=== PATIENT | female | born 1965 | race Caucasian/White ===

== ENCOUNTER 2018-06-04 07:02 | Day surgery (SDC) | payer BC ==
[~2018-06-04 07:02] MED LIST: Ketamine 500 mg/10 ML MDV ONE; Lactated Ringers 1,000 ML IV SCH; Lidocaine 1%/Sod Bicarbonate in NS 8.4% 1 ML Syringe IDERM PRN; Midazolam 1 MG/ML 2 ML SDV ONE; Propofol 200 MG/20 ML SDV ONE; Sodium Chloride 0.9% 10 ML Syringe FLUSH PRN; fentaNYL 100 MCG/2 ML SDV ONE
[2018-06-04] MEDS ORDERED: Lidocaine 1% 4 ML ONE (07:04)
[2018-06-04] MEDS ORDERED: Dexamethasone 4 MG/ML 5 ML MDV ONE (07:04)
[2018-06-04] MEDS ORDERED: Ondansetron 4 MG/2 ML SDV ONE (07:04)
--- NOTE | 2018-06-04 07:44 | PCM.PREANE ---
Preanesthetic Assessment - Procedure Proposed Procedure: Uterine D&C and hysteroscopy - Anesthesia/Transfusion/Family Hx Anesthesia History: Prior Anesthesia Without Reaction (PONV) Family History of Anesthesia Reaction: No Transfusion History: No Prior Transfusion(s) - Review of Systems General: No Symptoms Pulmonary: No Symptoms Cardiovascular: No Symptoms Gastrointestinal: No Symptoms Neurological: No Symptoms Other: Reports: Depression, Anxiety - Physical Assessment NPO Status Date: 06/03/18 NPO Status Time: 22:00 Pulse: 69 O2 Sat by Pulse Oximetry: 95 Respiratory Rate: 16 Blood Pressure: 113/68 Temperature: 36.7 C Height: 1.63 m Weight: 65.317 kg ASA Class: 2 Mental Status: Alert & Oriented x3 Airway Class: Mallampati = 1 Dentition: Reports: Normal Dentition Thyro-Mental Finger Breadths: 3 Mouth Opening Finger Breadths: 3 ROM/Head Extension: Full Lungs: Clear to Auscultation, Normal Respiratory Effort Cardiovascular: Regular Rate, Regular Rhythm - Lab Values: Laboratory Last Values WBC 5.57 K/mm3 (3.98-10.04) 05/13/18 09:39 RBC 4.46 M/mm3 (3.98-5.22) 05/13/18 09:39 Hgb 14.5 gm/L (11.2-15.7) 05/13/18 09:39 Hct 44.1 % (34.1-44.9) 05/13/18 09:39 MCV 98.9 fl (79.4-94.8) H 05/13/18 09:39 MCH 32.5 pg (25.6-32.2) H 05/13/18 09:39 MCHC 32.9 g/dl (32.2-35.5) 05/13/18 09:39 RDW Std Deviation 45.2 fL (36.4-46.3) 05/13/18 09:39 Plt Count 223 K/mm3 (182-369) 05/13/18 09:39 MPV 9.5 fl (9.4-12.3) 05/13/18 09:39 Neut % (Auto) 46.1 % (34.0-71.1) 05/13/18 09:39 Lymph % (Auto) 44.2 % (19.3-51.7) 05/13/18 09:39 [place] % (Auto) 8.4 % (4.7-12.5) 05/13/18 09:39 Eos % (Auto) 0.9 (0.7-5.8) 05/13/18 09:39 Baso % (Auto) 0.2 % (0.1-1.2) 05/13/18 09:39 Neut # (Auto) 2.57 K/mm3 (1.56-6.13) 05/13/18 09:39 Lymph # (Auto) 2.46 K/mm3 (1.18-3.74) 05/13/18 09:39 [place] # (Auto) 0.47 K/mm3 (0.24-0.36) H 05/13/18 09:39 Eos # (Auto) 0.05 K/mm3 (0.04-0.36) 05/13/18 09:39 Baso # (Auto) 0.01 K/mm3 (0.01-0.08) 05/13/18 09:39 Urine Color Yellow (Yellow) 05/13/18 09:39 Urine Appearance Clear (Clear) 05/13/18 09:39 Urine pH 7.5 (5.0-8.0) 05/13/18 09:39 Ur Specific Joseph 1.015 (1.005-1.030) 05/13/18 09:39 Urine Protein Negative (Negative) 05/13/18 09:39 Urine Glucose (UA) Negative (Negative) 05/13/18 09:39 Urine Ketones Negative (Negative) 05/13/18 09:39 Urine Occult Blood Negative (Negative) 05/13/18 09:39 Urine Nitrite Negative (Negative) 05/13/18 09:39 Urine Bilirubin Negative (Negative) 05/13/18 09:39 Urine Urobilinogen 0.2 (0.2-1.0) 05/13/18 09:39 Ur Leukocyte Esterase Negative (Negative) 05/13/18 09:39 - Allergies Allergies/Adverse Reactions: Allergies Allergy/AdvReac Type Severity Reaction Status Date / Time epinephrine Allergy hypoglycemi Verified 06/03/18 15:00 a strawberry Allergy Hives Verified 06/03/18 15:00 - Blood Blood Available: No Product(s) Available: None - Anesthesia Plan Pre-Op Medication Ordered: None - Acknowledgements Anesthesia Type Planned: MAC Pt an Appropriate Candidate for the Planned Anesthesia: Yes Alternatives and Risks of Anesthesia Discussed w Pt/Guardian: Yes Pt/Guardian Understands and Agrees with Anesthesia Plan: Yes PreAnesthesia Questionnaire HEENT History: Reports: Impaired Vision, Other (See Below) Other HEENT History: wears glasses Cardiovascular History: Reports: None Respiratory History: Reports: None Gastrointestinal History: Reports: None 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: , 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 , Other (See Below) Other OB/BYN History: post menopausal bleeding, stress urinary incontinence, bacterial vaginitis, breast nodule, , cervical dysplasia Musculoskeletal History: Reports: None Neurological History: Reports: None Psychiatric History: Reports: Anxiety, Depression Endocrine/Metabolic History: Reports: None Hematologic History: Reports: None Immunologic History: Reports: None Oncologic (Cancer) History: Reports: Breast Other Oncologic History: hx of bilateral breast cancer with bilateral mastectomies with a lymphnode taken from the left side Dermatologic History: Reports: None - Past Surgical History Head Surgeries/Procedures: Reports: None Cardiovascular Surgical History: Reports: None Respiratory Surgical History: Reports: None GI Surgical History: Reports: None Female Surgical History: Reports: Breast Biopsy, Cervical Conization, Tubal Ligation Male Surgical History: Reports: None Endocrine Surgical History: Reports: None Neurological Surgical History: Reports: None Musculoskeletal Surgical History: Reports: None Oncologic Surgical History: Reports: Biopsy of Breast, Mastectomy Dermatological Surgical History: Reports: None - SUBSTANCE USE Smoking Status *Q: Current Every Day Smoker Recreational Drug Use History: No - HOME MEDS Home Medications: Home Meds ALPRAZolam [Alprazolam] 0.5 mg PO BID PRN 06/03/18 [History] Calcium Carbonate [Calcium] 600 mg PO DAILY 06/03/18 [History] Escitalopram Oxalate 20 mg PO DAILY 06/03/18 [History] Gluc 2KCl/Chondr/Myranda Hy/Hy Ac [Glucosamine & Chondroitin Cap] 1 cap PO DAILY [History] Letrozole 2.5 mg PO DAILY 06/03/18 [History] Multivitamin [Daily Multiple Vitamin] 1 tab PO DAILY 06/03/18 [History] - CURRENT (IN HOUSE) MEDS Current Meds: Current Medications Lactated Ringer's (Ringers, Lactated) 1,000 mls @ 125 mls/hr IV ASDIRECTED YAZMIN Lidocaine/Sodium Bicarbonate (Buffered Lidocaine 1% In Ns 8.4%) 0.25 ml IDERM ONETIME PRN PRN Reason: Prior to IV Start Sodium Chloride (Saline Flush) 10 ml FLUSH ASDIRECTED PRN PRN Reason: Keep Vein Open Discontinued Medications Dexamethasone (Dexamethasone) Confirm Administered Dose 20 mg .ROUTE .STK-MED ONE Stop: 06/04/18 07:05 Fentanyl (Sublimaze) Confirm Administered Dose 100 mcg .ROUTE .STK-MED ONE Stop: 06/04/18 07:02 Lidocaine HCl (Xylocaine-Mpf 1%) Confirm Administered Dose 4 mls @ as directed .ROUTE .STK-MED ONE Stop: 06/04/18 07:05 Ketamine HCl (Ketalar) Confirm Administered Dose 500 mg .ROUTE .STK-MED ONE Stop: 06/04/18 07:03 Midazolam HCl (Versed 1 Mg/Ml) Confirm Administered Dose 2 mg .ROUTE .STK-MED ONE Stop: 06/04/18 07:03 Ondansetron HCl (Zofran) Confirm Administered Dose 4 mg .ROUTE .STK-MED ONE Stop: 06/04/18 07:05 Propofol (Diprivan 20 Ml) Confirm Administered Dose 200 mg .ROUTE .STK-MED ONE Stop: 06/04/18 07:02
[2018-06-04] MEDS ORDERED: ceFAZolin 1 GM Vial ONE (08:06)
[2018-06-04] MEDS ORDERED: Ondansetron 4 MG/2 ML SDV IVPUSH PRN (08:23)
[2018-06-04] MEDS ORDERED: Acetaminophen/oxyCODONE 325-5 MG Tab PO PRN (08:23)
--- NOTE | 2018-06-04 08:32 | PCM.OPNOTE ---
- General Post-Op/Procedure Note Date of Surgery/Procedure: 06/04/18 Operative Procedure(s): Hysteroscopy, dilation and curettage Findings: Patient had synechia present within the uterus, small polyp present-benign in appearance. The tubal ostia were seen. No other abnormalities noted. On bimanual exam the uterus is found to approximate 7-8 weeks size, very irregular and firm consistent with fibroid uterus. No adnexal abnormalities were noted. Uterus was freely mobile. It is felt that vaginal hysterectomy could be possible if indicated by future clinical findings and/or history. 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 She received 2 g of Ancef preoperatively for infection prophylaxis and had sequential compression stockings in place for DVT prophylaxis. Patient was given MAC. She is placed in a dorsal lithotomy position and prepped and draped in usual fashion. An exam under anesthesia was performed. Uterus is noted to be approximate 70 weeks size, irregular, consistent with fibroid uterus. Findings as described above. A weighted speculum was placed in the vagina. Cervix is visualized. It was grasped anteriorly with a single-tooth tenaculum. Uterus was then sounded to a depth of 7 cm. It is from the anterior, mid position. The cervix was dilated to allow entrance of a 5 mm 30 rigid hysteroscope. This was placed without problem and normal saline was used as a distending medium. The endometrial cavity was visualized. Findings as described above. Polyp was seen. Decision was made to proceed with polypectomy. Polyp forceps was introduced and polyps were removed. After this is performed a D&C was performed. Minimal amount tissue was obtained. Minimal bleeding was encountered. Hysteroscope was then placed back into the endometrial cavity. Blood was flushed out and the findings were consistent relatively normal-appearing endometrial cavity. At this point the scope was removed. The vagina was cleared of old blood, the cervix was released and the weighted speculum was removed. Patient was returned to supine position and awakened from general anesthesia. She tolerated the procedure well and operating room in good condition.
--- NOTE | 2018-06-04 08:33 | PCM48HPAN ---
Post Anesthesia Note - EVALUATION WITHIN 48HRS OF ANESTHETIC Vital Signs in Normal Range: Yes Patient Participated in Evaluation: Yes Respiratory Function Stable: Yes Airway Patent: Yes Cardiovascular Function Stable: Yes Hydration Status Stable: Yes Pain Control Satisfactory: Yes Nausea and Vomiting Control Satisfactory: Yes Mental Status Recovered: Yes Pulse Rate: 73 SaO2: 93 Resp Rate: 12 Temperature: 37.4 C Blood Pressure: 96/59
== END 2018-06-04 09:35 | disposition home or self-care (01) ==
LOC: JD.SDS 07:02
PROVIDERS: ATTEND Obstetrics & Gynecology
DX: N95.0 Postmenopausal bleeding (principal); N84.1 Polyp of cervix uteri; N85.6 Intrauterine synechiae; F17.210 Nicotine dependence, cigarettes, uncomplicated; F41.8 Other specified anxiety disorders; Z79.899 Other long term (current) drug therapy; Z88.8 Allergy status to other drugs, medicaments and biological substances; Z91.018 Allergy to other foods
CPT/HCPCS: 36415; 58558; 81003; 85025; J0690; J1100; J2250; J2405; J2704; J3010; J7120; 00952; J2001

== ENCOUNTER 2018-08-20 07:13 | Day surgery (SDC) | payer BC ==
--- NOTE | 2018-08-19 11:52 | PCM.PREANE ---
Preanesthetic Assessment - Anesthesia/Transfusion/Family Hx Anesthesia History: Prior Anesthesia Reaction (`) Type of Anesthesia Reaction: Excessive Nausea/Vomiting Family History of Anesthesia Reaction: No Transfusion History: No Prior Transfusion(s) Intubation History: Unknown - Review of Systems General: Fatigue Pulmonary: No Symptoms (smoker: 1 ppd times 40 years), Wheezing (occasionally wheezes), Cough, Sputum Cardiovascular: No Symptoms Gastrointestinal: No Symptoms (GERD) Neurological: No Symptoms Other: Reports: None (bilateral mastectomies with left sided lymph node removed (bilateral breast cancer)), Easy Bruising, Depression, Anxiety - Physical Assessment NPO Status Date: 08/19/18 NPO Status Time: 22:30 Pulse: 73 O2 Sat by Pulse Oximetry: 93 Respiratory Rate: 16 Blood Pressure: 105/61 Temperature: 36.9 C Height: 1.63 m Weight: 66 kg ASA Class: 2 Mental Status: Alert & Oriented x3 Airway Class: Mallampati = 2 Dentition: Reports: Normal Dentition, Missing Tooth/Teeth, Caries Thyro-Mental Finger Breadths: 3 Mouth Opening Finger Breadths: 3 ROM/Head Extension: Full Lungs: Clear to Auscultation, Normal Respiratory Effort Cardiovascular: Regular Rate, Regular Rhythm, No Murmurs - Lab Values: Laboratory Last Values WBC 6.59 K/mm3 (3.98-10.04) 08/18/18 13:08 RBC 4.04 M/mm3 (3.98-5.22) 08/18/18 13:08 Hgb 13.4 gm/L (11.2-15.7) 08/18/18 13:08 Hct 40.6 % (34.1-44.9) 08/18/18 13:08 MCV 100.5 fl (79.4-94.8) H 08/18/18 13:08 MCH 33.2 pg (25.6-32.2) H 08/18/18 13:08 MCHC 33.0 g/dl (32.2-35.5) 08/18/18 13:08 RDW Std Deviation 49.8 fL (36.4-46.3) H 08/18/18 13:08 Plt Count 237 K/mm3 (182-369) 08/18/18 13:08 MPV 9.1 fl (9.4-12.3) L 08/18/18 13:08 Neut % (Auto) 48.6 % (34.0-71.1) 08/18/18 13:08 Lymph % (Auto) 41.6 % (19.3-51.7) 08/18/18 13:08 [place] % (Auto) 8.2 % (4.7-12.5) 08/18/18 13:08 Eos % (Auto) 1.2 (0.7-5.8) 08/18/18 13:08 Baso % (Auto) 0.2 % (0.1-1.2) 08/18/18 13:08 Neut # (Auto) 3.21 K/mm3 (1.56-6.13) 08/18/18 13:08 Lymph # (Auto) 2.74 K/mm3 (1.18-3.74) 08/18/18 13:08 [place] # (Auto) 0.54 K/mm3 (0.24-0.36) H 08/18/18 13:08 Eos # (Auto) 0.08 K/mm3 (0.04-0.36) 08/18/18 13:08 Baso # (Auto) 0.01 K/mm3 (0.01-0.08) 08/18/18 13:08 Creatinine 1.0 mg/dL (0.55-1.02) 08/18/18 13:08 Est Cr Clr Drug Dosing TNP 08/18/18 13:08 Estimated GFR (MDRD) 58 mL/min (>60) 08/18/18 13:08 Urine Color Yellow (Yellow) 08/18/18 13:08 Urine Appearance Clear (Clear) 08/18/18 13:08 Urine pH 7.0 (5.0-8.0) 08/18/18 13:08 Ur Specific [place] 1.020 (1.005-1.030) 08/18/18 13:08 Urine Protein Negative (Negative) 08/18/18 13:08 Urine Glucose (UA) Negative (Negative) 08/18/18 13:08 Urine Ketones Negative (Negative) 08/18/18 13:08 Urine Occult Blood Negative (Negative) 08/18/18 13:08 Urine Nitrite Negative (Negative) 08/18/18 13:08 Urine Bilirubin Negative (Negative) 08/18/18 13:08 Urine Urobilinogen 0.2 (0.2-1.0) 08/18/18 13:08 Ur Leukocyte Esterase Negative (Negative) 08/18/18 13:08 Above labs reviewed and noted and within acceptable ranges to proceed with scheduled procedure. - Imaging/EKG Impressions: EKG:SR rate = 67, probable left atrial enlargement - Allergies Allergies/Adverse Reactions: Allergies Allergy/AdvReac Type Severity Reaction Status Date / Time strawberry Allergy Hives Verified 08/19/18 13:59 epinephrine AdvReac hypoglycemi Verified 08/19/18 13:59 a - Anesthesia Plan Pre-Op Medication Ordered: None - Acknowledgements Anesthesia Type Planned: General Anesthesia Pt an Appropriate Candidate for the Planned Anesthesia: Yes Alternatives and Risks of Anesthesia Discussed w Pt/Guardian: Yes Pt/Guardian Understands and Agrees with Anesthesia Plan: Yes PreAnesthesia Questionnaire HEENT History: Reports: Impaired Vision, Other (See Below) Other HEENT History: wears glasses Cardiovascular History: Reports: None Respiratory History: Reports: None Gastrointestinal History: Reports: None 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: , 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 , Other (See Below) Other OB/BYN History: post menopausal bleeding, stress urinary incontinence, bacterial vaginitis, breast nodule, , cervical dysplasia Musculoskeletal History: Reports: None Neurological History: Reports: None Psychiatric History: Reports: Anxiety, Depression Endocrine/Metabolic History: Reports: None Hematologic History: Reports: None Immunologic History: Reports: None Oncologic (Cancer) History: Reports: Breast Other Oncologic History: hx of bilateral breast cancer with bilateral mastectomies with a lymphnode taken from the left side Dermatologic History: Reports: None - Past Surgical History Head Surgeries/Procedures: Reports: None Cardiovascular Surgical History: Reports: None Respiratory Surgical History: Reports: None GI Surgical History: Reports: None Female Surgical History: Reports: Breast Biopsy, Cervical Conization, Tubal Ligation Male Surgical History: Reports: None Endocrine Surgical History: Reports: None Neurological Surgical History: Reports: None Musculoskeletal Surgical History: Reports: None Oncologic Surgical History: Reports: Biopsy of Breast, Mastectomy Dermatological Surgical History: Reports: None - HOME MEDS Home Medications: Home Meds ALPRAZolam [Alprazolam] 0.5 mg PO BID PRN 06/03/18 [History] Calcium Carbonate [Calcium] 600 mg PO DAILY 06/03/18 [History] Escitalopram Oxalate 20 mg PO DAILY 06/03/18 [History] Gluc 2KCl/Chondr/Myranda Hy/Hy Ac [Glucosamine & Chondroitin Cap] 1 cap PO DAILY [History] Letrozole 2.5 mg PO DAILY 06/03/18 [History] Multivitamin [Daily Multiple Vitamin] 1 tab PO DAILY 06/03/18 [History] Ibuprofen 600 mg PO Q4H PRN #20 tablet 06/04/18 [Rx] - CURRENT (IN HOUSE) MEDS Current Meds: Current Medications Albuterol (Proventil Neb Soln) 2.5 mg NEB ONETIME ONE Stop: 08/20/18 08:01 Lactated Ringer's (Ringers, Lactated) 1,000 mls @ 125 mls/hr IV ASDIRECTED YAZMIN Stop: 08/20/18 23:00 Lidocaine/Sodium Bicarbonate (Buffered Lidocaine 1% In Ns 8.4%) 0.25 ml IDERM ONETIME PRN PRN Reason: Prior to IV Start Stop: 08/20/18 18:00 Scopolamine (Transderm-Scop) 1.5 mg TOP ONETIME ONE Stop: 08/20/18 00:02 Sodium Chloride (Saline Flush) 10 ml FLUSH ASDIRECTED PRN PRN Reason: Keep Vein Open Stop: 08/20/18 18:00
[~2018-08-20 07:13] MED LIST changes: +Dexamethasone 4 MG/ML 5 ML MDV ONE; +HYDROmorphone 0.5 MG/0.5 ML Syringe ONE; -Ketamine 500 mg/10 ML MDV ONE; +Ketorolac 30 MG/ML SDV ONE; +Lactated Ringers 1,000 ML ONE; +Lidocaine 1% 4 ML ONE; +Ondansetron 4 MG/2 ML SDV ONE; +Rocuronium 50 MG/5 ML Vial ONE; +Scopolamine 1.5 MG Transdermal Patch TOP ONE; +ceFAZolin 1 GM Vial ONE
[2018-08-20] MEDS ORDERED: Sodium Chloride 0.9% 50 ML SDV ONE (07:23)
[2018-08-20] MEDS ORDERED: Lidocaine 1% 30 ML SDV ONE (07:23)
[2018-08-20] MEDS ORDERED: Albuterol 0.083% 2.5 MG/3 ML Neb Soln NEB ONE (08:00)
[2018-08-20] MEDS ORDERED: fentaNYL 100 MCG/2 ML SDV IVPUSH PRN (08:17)
[2018-08-20] MEDS ORDERED: diphenhydrAMINE 50 MG/ML SDV IVPUSH PRN (08:17)
[2018-08-20] MEDS ORDERED: Midazolam 1 MG/ML 2 ML SDV IVPUSH PRN (08:17)
[2018-08-20] MEDS ORDERED: Metoclopramide 10 MG/2 ML SDV IV PRN (08:17)
[2018-08-20] MEDS ORDERED: Ondansetron 4 MG/2 ML SDV IVPUSH PRN (08:17)
[2018-08-20] MEDS ORDERED: HYDROmorphone 0.5 MG/0.5 ML Syringe IVPUSH PRN (08:18)
[2018-08-20] MEDS ORDERED: Albuterol 0.083% 2.5 MG/3 ML Neb Soln NEB PRN (08:18)
[2018-08-20] MEDS ORDERED: Neostigmine Methylsulfate 1 MG/ML 5 ML Syringe ONE (08:20)
[2018-08-20] MEDS ORDERED: Phenylephrine 1 MG in Sodium Chloride 0.9% 10 ML IV SCH (08:30)
--- NOTE | 2018-08-20 08:41 | PCM.OPNOTE ---
- General Post-Op/Procedure Note Date of Surgery/Procedure: 08/20/18 Operative Procedure(s): Subfascial, midurethral sling Findings: Grade one cystocele, grade one rectocele. Fibroid uterus-7 week size Pre Op Diagnosis: Stress incontinence Post-Op Diagnosis: Same Primary Surgeon: Low Fernandes Secondary Surgeon: Aylin Betancourt Anesthesia Provider: Brunilda Lozano Reason Saw Maker Was Necessary: retraction, assistance Role of Saw Maker: same Fluid Replacement, Intraop: 700 Output, Urine Amount: 60 EBL in mLs: 25 Complications: None Condition: Good Free Text/Narrative:: Surgery duration: 60 minutes Procedure: The patient was taken the operating room and placed in supine position on the operating table. She was adequately consented for the procedure. She was given 2 g of Ancef preoperatively for infection prophylaxis and had sequential compression stockings in place for DVT prophylaxis. She had voided information security associate to the operating room. She was given general endotracheal anesthesia. She was placed in the dorsal lithotomy position. Her bladder was again drained with a red rubber catheter. 60 mL of normal urine was removed. The epithelium overlying the urethra was grasped approximately 1 cm from the urethral meatus and approximately 2 cm cephalad from there with Allis clamps. The area of the skin overlying the medial aspect of the obturator foramen on each side just posterior to the origin the abductor longus musclewas marked with a marking pen. These 2 areas and the sub-fascial layer of the vaginal were then infiltrated with lidocaine quarter percent-total of approximately 10 mL was used. Incisions made in the epithelium overlying the urethra and 2 small stab wounds 3 mm in length were made in the 2 areas of the panty line of the patient. The subfascial planes and adequately dissected bilaterally to allow placement of the mesh. The helical adapter was then placed through the obturator on patient's left side brought out through the vaginal subfascial plane. Mesh was attached to it and then was pulled back through the obturator foramen. Same was done on the right side. Mesh was then snugged up to the urethra. Dilator 15 mm in diameter was used as a spacer to place the mesh in a tension-free position. At this point the mesh was cut off at the skin surface and the dilator was removed. The midline epithelium was closed with a short running suture of 3-0 Monocryl. Skin incisions were closed with Dermabond skin glue. These bladder was filled with approximately 240 cc of normal saline to facilitate voiding and therefore discharged home. The patient was returned to supine position, awakened from general endotracheal anesthesia and was discharged from operating room in good condition.
--- NOTE | 2018-08-20 08:47 | PCM.POSTAN ---
POST ANESTHESIA ASSESSMENT - MENTAL STATUS Mental Status: Alert - VITAL SIGNS Pulse Rate: 81 SaO2: 97 (2 LPM nasal cannula) Resp Rate: 19 Blood Pressure: 100/66 Temperature: 36.3 C - RESPIRATORY Respiratory Status: Respiratory Rate WNL, Airway Patent, O2 Saturation Stable, Supplemental Oxygen - CARDIOVASCULAR CV Status: Pulse Rate WNL, Blood Pressure Stable - GASTROINTESTINAL GI Status: No Symptoms - POST OP HYDRATION Hydration Status: Adequate & Stable
--- NOTE | 2018-08-20 10:36 | PCM48HPAN ---
Post Anesthesia Note - EVALUATION WITHIN 48HRS OF ANESTHETIC Patient Participated in Evaluation: Yes Respiratory Function Stable: Yes Airway Patent: Yes Cardiovascular Function Stable: Yes Hydration Status Stable: Yes Pain Control Satisfactory: Yes Nausea and Vomiting Control Satisfactory: Yes Mental Status Recovered: Yes
== END 2018-08-20 12:00 | disposition home or self-care (01) ==
LOC: JD.SDS 07:13
PROVIDERS: ATTEND Obstetrics & Gynecology
DX: N39.3 Stress incontinence (female) (male) (principal); N32.81 Overactive bladder; N81.10 Cystocele, unspecified; N81.6 Rectocele; D25.9 Leiomyoma of uterus, unspecified; F32.9 Major depressive disorder, single episode, unspecified; F41.9 Anxiety disorder, unspecified; Z91.018 Allergy to other foods; Z79.899 Other long term (current) drug therapy
CPT/HCPCS: 36415; 81003; 82565; 85025; 93005; 94640; A9270-GY; J0690; J1100; J1170; J1885; J2001; J2250; J2405; J2704; J2710; J3010; J7120

== ENCOUNTER 2023-03-10 07:02 | Day surgery (SDC) | payer OTHER ==
[~2023-03-10 07:02] MED LIST changes: -Dexamethasone 4 MG/ML 5 ML MDV ONE; -HYDROmorphone 0.5 MG/0.5 ML Syringe ONE; -Ketorolac 30 MG/ML SDV ONE; -Lactated Ringers 1,000 ML ONE; -Lidocaine 1% 4 ML ONE; -Midazolam 1 MG/ML 2 ML SDV ONE; -Ondansetron 4 MG/2 ML SDV ONE; -Propofol 200 MG/20 ML SDV ONE; -Rocuronium 50 MG/5 ML Vial ONE; -Scopolamine 1.5 MG Transdermal Patch TOP ONE; +Sodium Chloride 0.9% 10 ML Syringe FLUSH SCH; -ceFAZolin 1 GM Vial ONE; -fentaNYL 100 MCG/2 ML SDV ONE
[2023-03-10] MEDS ORDERED: Propofol 200 MG/20 ML SDV ONE ×2 (07:04→08:48)
[2023-03-10] MEDS ORDERED: fentaNYL 100 MCG/2 ML SDV ONE (07:04)
[2023-03-10] MEDS ORDERED: Lidocaine 1% 2 ML ONE (07:04)
[2023-03-10] MEDS ORDERED: Midazolam 1 MG/ML 2 ML SDV ONE (07:04)
[2023-03-10] MEDS ORDERED: Glucagon,Human Recombinant 1 MG Vial ONE (08:28)
== END 2023-03-10 10:48 | disposition home or self-care (01) ==
LOC: JD.SDS 07:02
PROVIDERS: ATTEND Surgery
DX: Z12.11 Encounter for screening for malignant neoplasm of colon (principal); D12.2 Benign neoplasm of ascending colon; D12.3 Benign neoplasm of transverse colon; D12.4 Benign neoplasm of descending colon; D12.5 Benign neoplasm of sigmoid colon; K57.30 Diverticulosis of large intestine without perforation or abscess without bleeding; K64.8 Other hemorrhoids; K64.4 Residual hemorrhoidal skin tags; F41.8 Other specified anxiety disorders; K21.9 Gastro-esophageal reflux disease without esophagitis; E78.5 Hyperlipidemia, unspecified; F17.210 Nicotine dependence, cigarettes, uncomplicated; Z88.8 Allergy status to other drugs, medicaments and biological substances; Z91.018 Allergy to other foods; Z79.899 Other long term (current) drug therapy
CPT/HCPCS: 45381; 45385; J1610; J2250; J2704; J3010; J7120; 00812; J3490

== ENCOUNTER 2023-07-09 07:39 | Day surgery (SDC) | payer OTHER ==
[~2023-07-09 07:39] MED LIST changes: -Lactated Ringers 1,000 ML IV SCH; -Lidocaine 1%/Sod Bicarbonate in NS 8.4% 1 ML Syringe IDERM PRN; -Sodium Chloride 0.9% 10 ML Syringe FLUSH SCH
[2023-07-09] MEDS ORDERED: Lactated Ringers 1,000 ML IV SCH (07:45)
[2023-07-09] MEDS ORDERED: Albuterol 0.083% 2.5 MG/3 ML Neb Soln NEB ONE (08:43)
[2023-07-09] MEDS ORDERED: Sodium Chloride 0.9% 10 ML Syringe FLUSH SCH (09:00)
[2023-07-09] MEDS ORDERED: Propofol 200 MG/20 ML SDV ONE ×2 (09:03→09:37)
[2023-07-09] MEDS ORDERED: Lidocaine 1% 6 ML ONE (09:03)
[2023-07-09] MEDS ORDERED: fentaNYL 100 MCG/2 ML SDV ONE (09:03)
== END 2023-07-09 10:35 | disposition home or self-care (01) ==
LOC: JD.SDS 07:39
PROVIDERS: ATTEND Surgery
DX: Z12.11 Encounter for screening for malignant neoplasm of colon (principal); D12.2 Benign neoplasm of ascending colon; D12.5 Benign neoplasm of sigmoid colon; D12.3 Benign neoplasm of transverse colon; K57.30 Diverticulosis of large intestine without perforation or abscess without bleeding; K64.8 Other hemorrhoids; F41.8 Other specified anxiety disorders; L98.9 Disorder of the skin and subcutaneous tissue, unspecified; K21.9 Gastro-esophageal reflux disease without esophagitis; E78.00 Pure hypercholesterolemia, unspecified; E78.2 Mixed hyperlipidemia; Z88.8 Allergy status to other drugs, medicaments and biological substances; Z79.899 Other long term (current) drug therapy; Z87.891 Personal history of nicotine dependence
CPT/HCPCS: 45380; 45385; J2704; J3010; J7120; 00811; J3490; J7620-GY